=== PATIENT | male | born 1995 | race Caucasian/White ===

== ENCOUNTER 2023-11-22 06:19 | Emergency (ER) | payer SELFPAY ==
[~2023-11-22] VITALS: Ht 193 cm; Wt 99.8 kg
[2023-11-22] MEDS ORDERED: LIDOCAINE 1%-EPI 1:100,000 20 ML VIAL ONE (06:37)
[2023-11-22] MEDS: LIDOCAINE 1%-EPI 1:100,000 20 ML VIAL TP ONE (06:51)
[2023-11-22] MEDS ORDERED: ONDANSETRON 4 MG TAB.RAPDIS ONE (06:59)
[2023-11-22] MEDS: ONDANSETRON 4 MG TAB.RAPDIS SL ONE (07:00)
[2023-11-22 08:31] VITALS: BP 139/81; TEMP 98.8; O2SAT 97
== END 2023-11-22 08:31 | disposition home or self-care (01) ==
LOC: ER 06:25
DX: S01.01XA Laceration without foreign body of scalp, initial encounter (principal); R42 Dizziness and giddiness; R11.0 Nausea; Y30.XXXA Falling, jumping or pushed from a high place, undetermined intent, initial encounter; Y93.89 Activity, other specified; Y92.89 Other specified places as the place of occurrence of the external cause; Y99.8 Other external cause status
CPT/HCPCS: 12002; 70450; 99284; J3490; Q0162

== ENCOUNTER 2023-11-27 08:28 | Emergency (ER) | payer SELFPAY ==
[~2023-11-27] VITALS: Ht 193 cm; Wt 99.8 kg
[2023-11-27 08:34] VITALS: BP 124/57; TEMP 97.9; O2SAT 100
== END 2023-11-27 08:57 | disposition home or self-care (01) ==
LOC: ER 08:28
DX: S01.01XD Laceration without foreign body of scalp, subsequent encounter (principal); Z48.02 Encounter for removal of sutures; X58.XXXD Exposure to other specified factors, subsequent encounter

== ENCOUNTER 2023-12-01 17:30 | Emergency (ER) | payer SELFPAY ==
[~2023-12-01] VITALS: Ht 182.9 cm; Wt 94.3 kg
[2023-12-01] MEDS ORDERED: ACETAMINOPHEN ES 500 MG TABLET ONE (19:22)
[2023-12-01] MEDS ORDERED: KETOROLAC TROMETHAMINE 15 MG/ML VIAL ONE (19:22)
[2023-12-01] MEDS: ACETAMINOPHEN ES 500 MG TABLET PO ONE (19:23)
[2023-12-01] MEDS: KETOROLAC TROMETHAMINE 15 MG/ML VIAL IM ONE (19:23)
[2023-12-01] MEDS ORDERED: CYCLOBENZAPRINE 10 MG TABLET ONE (19:47)
[2023-12-01] MEDS: CYCLOBENZAPRINE 10 MG TABLET PO ONE (19:48)
[2023-12-01] MEDS: IBUPROFEN 400 MG TABLET PO ONE (19:48)
[2023-12-01] MEDS ORDERED: IBUPROFEN 400 MG TABLET ONE (19:48)
[2023-12-01] MEDS ORDERED: IBUP-1955 PO (19:58)
[2023-12-01] MEDS ORDERED: ACET-2605 PO (19:58)
[2023-12-01] MEDS ORDERED: CYCL5TAB PO (19:58)
[2023-12-01 20:04] VITALS: BP 103/67; TEMP 98; O2SAT 99
== END 2023-12-01 20:04 | disposition home or self-care (01) ==
LOC: ER 17:33
DX: S70.12XA Contusion of left thigh, initial encounter (principal); M25.562 Pain in left knee; M25.552 Pain in left hip; V23.49XA Other motorcycle driver injured in collision with car, pick-up truck or van in traffic accident, initial encounter; Y93.89 Activity, other specified; Y92.488 Other paved roadways as the place of occurrence of the external cause; Y99.8 Other external cause status
CPT/HCPCS: 99284; 73552; 73503; 73564; J1885; 73502

== ENCOUNTER 2024-12-14 09:38 | Emergency (ER) | payer SELFPAY ==
[~2024-12-14] VITALS: Ht 195.6 cm; Wt 104.3 kg
[~2024-12-14 09:38] MED LIST: ACET-2605 PO; CYCL5TAB PO; IBUP-1955 PO
[2024-12-14 09:40] VITALS: BP 166/89; TEMP 98.2; O2SAT 98
[2024-12-14] MEDS ORDERED: IBUP-1490 PO (10:43)
== END 2024-12-14 10:56 | disposition home or self-care (01) ==
LOC: ER 09:45
DX: S49.91XA Unspecified injury of right shoulder and upper arm, initial encounter (principal); X58.XXXA Exposure to other specified factors, initial encounter; Y93.89 Activity, other specified; Y92.89 Other specified places as the place of occurrence of the external cause; Y99.8 Other external cause status
CPT/HCPCS: 73030-TC